=== PATIENT | female | born 1955 | race Caucasian/White ===

== ENCOUNTER → 2017-02-11 | Outpatient (CLI) | payer BC ==
[~2017-02-11] MED LIST: ASPIRIN81 MG PO; ETODOLAC300 MG PO; GABAPENTIN300 MG PO; KLONOPIN0.5 MG PO; PROBIOTIC1 EAC1 PO; PROTONIX40 M1 PO; ZOCOR PO
--- NOTE | ~2017-02-11 | MY11 ---
[facility] A Service of [facility] RADIOLOGY TEXT RESULTS PATIENT: IVETH GARCIA LOCATION: [facility] : 51 UNIT #: [id number] AGE: [address]: Sammi Rodriguez MD SEX: F ORDER DR: [id number] [place] [id number] [facility]. [place], [place] [address] [id number] O MR#: [id number] Acc #: [id number] NAME: IVETH GARCIA : 1955 SEX: F STUDY DATE/TIME: 02/11/2017 9:20 UNIT: [facility] ROOM: STUDY DESCRIPTION: MY Mammogram Screening Dig Ramsey Attending Physician: Sammi Rodriguez M.D. Referring Physician: Sammi Rodriguez M.D. Ordering Physician: Sammi Rodriguez M.D. Primary Care Physician: Sammi Rodriguez M.D. MEDICAL IMAGING REPORT This report is preliminary unless electronic signature is present EXAM Bilateral digital screening mammogram with CAD INDICATION Breast cancer screening. 61-year-old asymptomatic female. No personal or family history of breast cancer. COMPARISONS January 03, 2016, October 11, 2014, August 17, 2015, July 24, 2012, January 23, 2011m January 03, 2010, December 06, 2008. FINDINGS There are scattered fibroglandular tissues. No suspicious findings are present. IMPRESSION No mammographic evidence of malignancy. Annual screening mammography and clinical breast exam are recommended. A result letter will be sent to the patient. Patients over the age of 40 are entered into a reminder system with target due date for the next mammogram. BIRADS: 1 Negative Dictated by... Byron Thibodeaux M.D. THIS IS AN ELECTRONICALLY VERIFIED REPORT Byron Thibodeaux M.D. at 02/11/2017 5:31 PM [facility] A Service of [facility] RADIOLOGY TEXT RESULTS PATIENT: IVETH GARCIA LOCATION: [facility] : 53 UNIT #: [id number] AGE: [address]: Sammi Rodriguez MD SEX: F ORDER DR: GALA/laverne TD: 02/11/2017 12:57 JOB #: [id number] MEDICAL IMAGING REPORT Page 1 of 1 COPY
== END | disposition home or self-care (01) ==
LOC: CWCC 08:52
DX: Z12.31 Encounter for screening mammogram for malignant neoplasm of breast (principal)
CPT/HCPCS: G0202

== ENCOUNTER 2017-04-01 12:04 | Observation (INO) | payer BC ==
--- NOTE | ~2017-04-01 | EKG ---
PATIENT: IVETH GARCIA UNIT #: [id number] Ventricular Rate: 56 BPM Atrial Rate: 56 BPM P-R Interval: 158 ms QRS Duration: 92 ms Q-T Interval: 408 ms QTC Calculation(Bezet): 393 ms P [place]: 9 degrees Calculated R [place]: 10 degrees Calculated T [place]: 34 degrees Diagnosis Line: Sinus bradycardia Diagnosis Line: Septal infarct (cited on or before 01-APR-2017) Diagnosis Line: Abnormal ECG Diagnosis Line: When compared with ECG of 01-APR-2017 12:08, Diagnosis Line: (unconfirmed) Diagnosis Line: No significant change was found Diagnosis Line: Confirmed by DIANE PHAN MD ([id number]) on 04/02/2017 Diagnosis Line: 7:44:08 AM INTERPRETING MD: EMILIE SANDERS
--- NOTE | ~2017-04-01 | ST ---
Unit #: [id number] #: [id number] Patient: IVETH GARCIA [id number] [address] [address] [id number] I MR#: [id number] NAME: IVETH GARCIA : 1955 SEX: F STUDY DATE/TIME: 04/02/2017 UNIT: C5B ROOM: 557 STUDY DESCRIPTION: Lexiscan stress test Attending Physician: Burno Taylor M.D. Primary Care Physician: Sammi Rodriguez M.D. CARDIOLOGY REPORT PROCEDURE PERFORMED Lexiscan Cardiolite stress test. REPORT Baseline EKG - Sinus bradycardia, heart rate 54 beats per minute, left atrial abnormality, Q wave in V1 and V2, slow R wave progression, low voltage in lead III and AVF. Lexiscan is a 4-minute test with Lexiscan being injected within the first minute, followed by Cardiolite. FINDINGS 1. Within the first minute of the Lexiscan infusion, patient became very dizzy, lightheaded, pale. On telemetry, it showed 2:1 AV block, several episodes during about one minute length of time. Then, the patient went back into normal sinus rhythm. 2. Patient had no complaints of chest pain, palpitations. 3. Maximum heart rate response was 100 beats per minute with a maximum blood pressure response of 146/78 mmHg. It is noted, during that episode with the sinus block, that her blood pressure was down to 91/60 mmHg. 4. Cardiolite was injected after Lexiscan within the first minute of the test. Radionuclide tests pending. Please correlate with nuclear images. 5. At the end of the recovery phase the patient was back to baseline. Dictated by... Cindy River A.P.R.N. for Tim Sharma TD: 04/02/2017 11:35 JOB #: [id number] Unit #: [id number] #: [id number] Patient: IVETH GARCIA CARDIOLOGY REPORT Page 1 of 1 X Cindy River APRN CARDIOLOGY REPORT
--- NOTE | ~2017-04-01 | HP ---
Unit #: [id number] #: [id number] Patient: IVETH GARCIA [id number] [address] [place], [place] [address] [id number] I MR#: [id number] NAME: IVETH GARCIA. ROOM: 557 Age: 61 Sex: F Admission Date: 04/01/2017 : 1955 Attending Physician: Bruno Taylor M.D. Primary Care Physician: Sammi Rodriguez M.D. HISTORY AND PHYSICAL HISTORY OF PRESENT ILLNESS This is a 61-year-old white female who presented to the emergency room with the complaint of substernal chest pain. She has chest pain that she describes as a sharp pain that radiates into her right shoulder, associated with profound weakness. Her symptoms have been off and on since Friday. On Friday she was painting her deck and had substernal chest pain. Her weakness was so profound that she had to stop to rest. Since, she has had off and on episodes of intermittent chest pain. She took Tums because she felt that it was related to reflux. Today at work she had similar symptoms but also had palpitations. She came to the emergency room for evaluation. Her troponin was initially negative. 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 She denies a history of hypertension but has risk factors for ischemic heart disease that include hyperlipidemia and obesity. She has had no prior cardiac history or testing. PAST MEDICAL HISTORY 1. Hyperlipidemia. 2. GERD. 3. C. difficile toxin. 4. Obesity. 5. Osteoarthritis. 6. Chronic back pain. 7. Lifelong nonsmoker. PAST SURGICAL HISTORY 1. Hysterectomy. 2. Repair of a tibia/fibula fracture. 3. Cataract extraction. 4. Tonsillectomy. SOCIAL HISTORY The patient is . She has never smoked. She denies a history of illicit drug or alcohol use. 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 FAMILY HISTORY Father from renal failure. Mother from Alzheimer's but had a history of stroke. ALLERGIES No known drug allergies. HOME MEDICATIONS Unit #: [id number] #: [id number] Patient: IVETH GARCIA 1. Protonix. 2. Etodolac. 3. Simvastatin. 4. Gabapentin. 5. Tums. 6. Anxiety medication. REVIEW OF SYSTEMS CONSTITUTIONAL: Positive for profound weakness and fatigue. Has no weight gain or weight loss. No fever or chills. HEENT: No headache, hearing or visual changes or difficulty with swallowing. Negative for dizziness. CARDIOVASCULAR: Has chest pain described in the HPI. Has occasional palpitations. No paroxysmal nocturnal dyspnea or orthopnea. Denies syncope or near syncope. RESPIRATORY: Negative for dyspnea, cough or hemoptysis. GASTROINTESTINAL: No abdominal pain, nausea or vomiting. No constipation or melena. EXTREMITIES: Negative for lower extremity edema. PHYSICAL EXAMINATION VITAL SIGNS: Blood pressure 131/64, heart rate 62, temperature 97.5, BMI 39. GENERAL: This is a pleasant, 61-year-old, obese white female who is in no acute distress. NEUROLOGICAL: She is awake, alert and oriented. There are no focal weaknesses. NECK: Trachea is midline. No thyromegaly or lymphadenopathy. No jugular venous distention. Carotid upstrokes are normal. HEART: S1, S2. Heart sounds are normal. No murmurs or rubs or clicks. Regular rate and rhythm LUNGS: Clear, without rales, rhonchi or wheezes. ABDOMEN: Soft, nontender, with bowel sounds present. No organomegaly. EXTREMITIES: Without leg edema. SKIN: Warm and dry. DIAGNOSTIC STUDIES LABORATORY: Glucose 117, BUN 20, creatinine 0.7, sodium 137, potassium 3.5, white count 5.9, hemoglobin 15.7, hematocrit 46.4, platelet count 161, troponin less than 0.05. IMAGING: Chest x-ray shows no active disease. CARDIOVASCULAR: EKG shows sinus bradycardia at a rate of 58 beats per minute with left axis deviation. Questionable old inferior infarct. There is poor R-wave progression V1 through V4. IMPRESSION 1. Chest pain, rule out coronary disease. 2. Hyperlipidemia. 3. Obesity. 4. Abnormal EKG with questionable old inferior infarct. PLAN 1. The patient's symptoms are atypical for a significant ischemic heart disease. However, given the profound weakness, chest pain and abnormal EKG will schedule for a Lexiscan Cardiolite stress test in Unit #: [id number] #: [id number] Patient: IVETH GARCIA the a.m. to rule out coronary artery disease. 2. Treat with IV Protonix. 3. Obtain D-dimer. 4. Two-D echocardiogram will be done to evaluate for left ventricular systolic function. 5. Fasting lipid profile and TSH will be checked. 6. Supplement potassium. 7. Start on aspirin and Lovenox. 8. Continue to trend troponin to rule out myocardial infarction. 9. If stress test is negative, the patient will be discharged home tomorrow. Dictated by Corwin PastorRMonica for Bruno Taylor M.D. RIAZ/yoni TD: 04/01/2017 22:49 JOB #: [id number] HISTORY AND PHYSICAL Page 1 of 1 X Jorge Hernandez APRN X HISTORY AND PHYSICAL
--- NOTE | ~2017-04-01 | CR72 ---
[facility] A Service of [facility] RADIOLOGY TEXT RESULTS PATIENT: IVETH GARCIA LOCATION: [place] [address] : [birth year] UNIT #: [id number] AGE: [address]: Bruno Taylor MD SEX: F ORDER DR: [id number] [facility] [address] [facility]. [place], [place] [address] [id number] MR#: [id number] Acc #: [id number] NAME: IVETH GARCIA : 1955 SEX: F STUDY DATE/TIME: 04/01/2017 13:37 UNIT: [facility] ROOM: STUDY DESCRIPTION: CR Chest Single View Portable Attending Physician: Ward Adame M.D. Ordering Physician: Ward Adame M.D. Primary Care Physician: Sammi Rodriguez M.D. MEDICAL IMAGING REPORT This report is preliminary unless electronic signature is present EXAM AP portable chest date 04/01/2017 HISTORY 61-year-old female complains of chest pain for 1 day. History of reflux. COMPARISON None. FINDINGS No acute airspace disease. Heart size within normal limits. No pleural effusion. No pneumothorax. Benign calcified granulomatous changes in the right infrahilar region of the right costophrenic angle. No acute osseous abnormalities. IMPRESSION No acute chest findings. Benign calcified granulomatous changes. Dictated by... Bernarda Dorsey M.D. THIS IS AN ELECTRONICALLY VERIFIED REPORT Bernarda Dorsey M.D. at 04/02/2017 9:00 AM VERA/kimberly TD: 04/01/2017 15:33 JOB #: [id number] MEDICAL IMAGING REPORT Page 1 of 1 COPY
--- NOTE | ~2017-04-01 | TH ---
Unit #: [id number] #: [id number] Patient: IVETH GARCIA [id number] [address] [address] [id number] I MR#: [id number] NAME: IVETH GARCIA. : 1955 SEX: F STUDY DATE/TIME: UNIT: C5B ROOM: 557 STUDY DESCRIPTION: Imaging Study Attending Physician: Bruno Taylor M.D. Primary Care Physician: Sammi Rodriguez M.D. CARDIOLOGY REPORT EXAM Lexiscan-Cardiolite stress test, nuclear portion DESCRIPTION OF PROCEDURE AND FINDINGS Using [id number] Cardiolite, rest and stress SPECT images were obtained. Multiple SPECT images were obtained in various views including horizontal and vertical long axis and short axis views of the left ventricle. Images were obtained by gated SPECT method. The patient was administered 12.0 mCi of Cardiolite at rest. The patient was administered 32.9 mCi of Cardiolite after Lexiscan infusion was completed. On the stress images there is normal perfusion noted. The rest images show mild decreased tracer uptake activity in the infraapical wall. Comparing rest and stress images there is no stress-induced ischemia noted. The left ventricular ejection fraction is calculated to be 70%. There is no focal wall motion abnormality seen. CONCLUSION 1. No obvious stress-induced ischemia noted. 2. The left ventricular ejection fraction is calculated to be 70%. 3. There is no focal wall motion abnormality seen. 4. Normal nuclear portion of the stress test. 5. Technically limited study. Clinical correlation is requested. Dictated by... Tim Sharma TD: 04/02/2017 15:25 JOB #: [id number] Unit #: [id number] #: [id number] Patient: IVETH GARCIA CARDIOLOGY REPORT Page 1 of 1 X Elana Weathers MD <ELECTRONICALLY SIGNED> 05/10/17 1429 CARDIOLOGY REPORT
--- NOTE | ~2017-04-01 | US67 ---
[facility] A Service of [facility] RADIOLOGY TEXT RESULTS PATIENT: IVETH GARICA LOCATION: [place] [address] : [birth year] UNIT #: [id number] AGE: [address]: Bruno Taylor MD SEX: F ORDER DR: [id number] [facility] [address] [facility]. [place], [place] [address] [id number] I MR#: [id number] Acc #: [id number] NAME: IVETH GARCIA : 1955 SEX: F STUDY DATE/TIME: 04/02/2017 8:41 UNIT: [facility] ROOM: [facility] STUDY DESCRIPTION: US Gallbladder Attending Physician: Bruno Taylor M.D. Ordering Physician: Bruno Taylor M.D. Primary Care Physician: Sammi Rodriguez M.D. MEDICAL IMAGING REPORT This report is preliminary unless electronic signature is present EXAM Gallbladder ultrasound 04/02/2017 HISTORY Chest pain and right upper quadrant abdominal pain radiating to right shoulder for 2 weeks intermittently. FINDINGS The liver demonstrates an increase in echotexture with attenuation of the ultrasound beam characteristic of mild fatty infiltration. No cystic or solid mass lesions were seen in the liver. The intra- and extrahepatic bile ducts are not dilated. The gallbladder is normal with no evidence of cholelithiasis, wall thickening or pericholecystic fluid. The common duct measures 3 mm. The pancreas is poorly visualized due to overlying bowel gas. The right kidney is normal. IMPRESSION 1. Fatty infiltration of the liver. 2. Normal gallbladder. 3. Poor visualization of the pancreas due to overlying bowel gas. Dictated by... Junior Li M.D. THIS IS AN ELECTRONICALLY VERIFIED REPORT Junior Li M.D. at 04/03/2017 8:01 AM KAYE/zachary TD: 04/02/2017 10:29 JOB #: [id number] [facility] A Service [facility] RADIOLOGY TEXT RESULTS PATIENT: IVETH GARCIA [facility] [address] [facility] [id number] : [birth year] UNIT #: [id number] AGE: [address]: Bruno Taylor MD SEX: F ORDER DR: MEDICAL IMAGING REPORT Page 1 of 1 COPY
--- NOTE | ~2017-04-01 | EKG ---
PATIENT: IVETH GARCIA UNIT #: [id number] Ventricular Rate: 58 BPM Atrial Rate: 58 BPM P-R Interval: 158 ms QRS Duration: 98 ms Q-T Interval: 418 ms QTC Calculation(Bezet): 410 ms P [place]: 6 degrees Calculated R [place]: -11 degrees Calculated T [place]: 26 degrees Diagnosis Line: Sinus bradycardia Diagnosis Line: Septal infarct , age undetermined Diagnosis Line: Abnormal ECG Diagnosis Line: No previous ECGs available Diagnosis Line: Confirmed by DIANE PHAN MD ([id number]) on 04/02/2017 Diagnosis Line: 7:32:07 AM INTERPRETING MD: EMILIE SANDERS
[2017-04-01 13:25] LABS: POC - CKMB 4.1 ng/mL (0.0-7.9); POC - TROPONIN <0.05 ng/mL (<=0.05)
[2017-04-01 13:47] LABS: BASOPHIL% 0.2 % (0-2.5); EOSINOPHIL# 0.2 X10e3 (0-0.7); EOSINOPHIL% 2.8 % (0.0-7.0); HEMATOCRIT 46.9 % (35.0-45.0); HEMOGLOBIN 15.7 gm/dL (12.0-16.0); LYMPHOCYTE# 2.2 X10e3 (1.0-3.5); LYMPHOCYTE% 37.5 % (17.0-45.0); MEAN CELL VOLUME 89.6 FL (83-96); MEAN CORPUSCULAR HEMOGLOBIN 30.1 PG (28-34); MEAN CORPUSCULAR HGB CONC 33.6 g/dL (30-36); MEAN PLATELET VOLUME 10.3 FL (6.5-11.5); MONOCYTE# 0.6 X10e3 (0-1.0); MONOCYTE% 9.4 % (3.0-12.0); NEUTROPHIL% 50.1 % (40-75); PLATELET COUNT 161 X10e3 (140-420); RED BLOOD COUNT 5.23 X10e (3.90-5.30); RED CELL DISTRIBUTION WIDTH 13.4 % (11.0-15.5); WHITE BLOOD COUNT 5.9 X10e3 (4.0-10.5)
[2017-04-01 13:49] LABS: DIFF IND NO
[2017-04-01 14:44] LABS: ALBUMIN SERUM 3.9 g/dL (3.5-5.0); BILIRUBIN, DIRECT 0.1 mg/dL (0.0-0.2); BILIRUBIN,INDIRECT 0.6 mg/dL (0.0-0.9); BILIRUBIN,TOTAL 0.7 mg/dL (0.2-2.0); BUN/CREATININE RATIO 28.57; CALCIUM SERUM 9.1 mg/dL (8.4-10.2); CREATININE SERUM 0.7 mg/dL (0.6-1.4); GLOM FILT RATE Estimated 92.2 mL/min (>60); POTASSIUM 3.5 mmol/L (3.5-5.1); PROTEIN TOTAL SERUM 7.2 g/dL (6.0-8.3)
[2017-04-01 15:32] LABS: POC - CKMB 3.1 ng/mL (0.0-7.9); POC - TROPONIN <0.05 ng/mL (<=0.05)
[2017-04-01] MEDS ORDERED: PROBIOTIC1 EAC1 PO (17:50)
[2017-04-01] MEDS ORDERED: PROTONIX40 M1 PO (17:50)
[2017-04-01] MEDS ORDERED: ETODOLAC300 MG PO (17:50)
[2017-04-01] MEDS ORDERED: ZOCOR PO (17:50)
[2017-04-01] MEDS ORDERED: KLONOPIN0.5 MG PO (17:50)
[2017-04-01] MEDS ORDERED: GABAPENTIN300 MG PO (17:51)
[2017-04-01 20:47] LABS: %MB 5.5 % (0.0-4.0); MB 4.6 ng/ml
[2017-04-02 03:37] LABS: CHOLESTEROL 161 mg/dL (0-200); HDL CHOLESTEROL 36 mg/dL (35-95); LDL CHOLESTEROL 90 mg/dL ([, -130]); LDL/HDL RATIO 3 RATIO (0-4); TRIGLYCERIDES 175 mg/dL (10-160)
[2017-04-02 03:48] LABS: %MB 5.2 % (0.0-4.0); MB 3.7 ng/ml
[2017-04-02] MEDS ORDERED: ASPIRIN81 MG PO (15:27)
== END 2017-04-02 16:07 | disposition home or self-care (01) | DRG 313 ==
LOC: CED 12:04 → CEDOF 15:00 → CED 15:00 → CEDOF 15:49 → CED 15:49 → CEDOF 21:43 → C5B 21:43
PROVIDERS: Emergency Medicine; Internal Medicine Cardiovascular Disease
DX: R07.89 Other chest pain (principal); E78.5 Hyperlipidemia, unspecified; E66.9 Obesity, unspecified; Z68.39 Body mass index [BMI] 39.0-39.9, adult; K76.0 Fatty (change of) liver, not elsewhere classified; I51.7 Cardiomegaly; J84.10 Pulmonary fibrosis, unspecified; R94.31 Abnormal electrocardiogram [ECG] [EKG]; K21.9 Gastro-esophageal reflux disease without esophagitis; M54.89 Other dorsalgia; M19.90 Unspecified osteoarthritis, unspecified site; Z79.899 Other long term (current) drug therapy; Z86.19 Personal history of other infectious and parasitic diseases; Z82.3 Family history of stroke; Z84.89 Family history of other specified conditions; Z90.710 Acquired absence of both cervix and uterus; Z98.890 Other specified postprocedural states
CPT/HCPCS: 36415; 71010; 76705; 78452; 80048; 80061; 80076; 82550; 82553; 84443; 84484; 85025; 85379; 93005; 93017; 93306; 96372; 96374; 99285; A9500; C9113; G0378; J1650; J2785